=== PATIENT | male | born 1975 | race American Indian/Alaskan Native ===

== ENCOUNTER 2020-10-30 14:59 | Emergency (ER) | payer SELFPAY ==
[2020-10-30 16:01] VITALS: BP 198/93
--- NOTE | 2020-10-30 16:12 | Emergency Department Report ---
ED General Adult HPI - General Chief complaint: Extremity Injury, Lower Stated complaint: LEFT KNEE PAIN Time Seen by Provider: 10/30/20 16:01 Source: patient Mode of arrival: Ambulatory Limitations: No Limitations - History of Present Illness Initial comments: 44-year-old -[place] male patient presents with complaints of left knee pain x3 days. Patient states the pain began while walking down the stairs and twisting his knee. He rates his current pain as a 7/10 in severity states it occurs only with ambulation. He also states there is some tightness after sitting for an extended period of time. He denies any swelling, skin changes, numbness/tingling/weakness in his leg, or difficulty moving his knee. Quality: aching Worsens with: immobilization, medication (Ibuprofen) - Related Data Previous Rx's Medication Instructions Recorded Last Taken Type Acetaminophen [Tylenol] 1,000 mg PO Q6HR #30 tablet 10/30/20 Unknown Rx Naproxen 500 mg PO BID PRN #20 tablet 10/30/20 Unknown Rx Allergies Allergy/AdvReac Type Severity Reaction Status Date / Time No Known Allergies Allergy Unverified 10/30/20 15:53 ED Review of Systems ROS: Stated complaint: LEFT KNEE PAIN Other details as noted in HPI Musculoskeletal: arthralgia. denies: joint swelling Skin: denies: change in color, pruritus Neurological: abnormal gait. denies: numbness, paresthesias ED Past Medical Hx - Past Medical History Previous Medical History?: No - Surgical History Past Surgical History?: No - Social History Smoking Status: Never Smoker - Medications Home Medications: Home Medications Medication Instructions Recorded Confirmed Last Taken Type Acetaminophen [Tylenol] 1,000 mg PO Q6HR #30 tablet 10/30/20 Unknown Rx Naproxen 500 mg PO BID PRN #20 tablet 10/30/20 Unknown Rx ED Physical Exam - General Limitations: No Limitations General appearance: alert, in no apparent distress - Head Head exam: Present: atraumatic, normocephalic - Eye Eye exam: Present: normal appearance - Respiratory Respiratory exam: Absent: respiratory distress - Cardiovascular Cardiovascular Exam: Present: regular rate - Expanded Lower Extremity Exam Left Knee exam: Present: full ROM, tenderness (Medial joint line tenderness noted). Absent: swelling, abrasion, laceration, ecchymosis, deformity, dislocation, effusion Neuro vascular tendon exam: Present: no vascular compromise. Absent: sensory deficit - Neurological Exam Neurological exam: Present: alert, oriented X3 - Psychiatric Psychiatric exam: Present: normal affect, normal mood - Skin Skin exam: Present: warm, dry, intact, normal color. Absent: rash, cyanosis, diaphoretic, pallor, ecchymosis ED Course Vital Signs 10/30/20 10/30/20 15:35 15:59 Temperature 99.2 F Pulse Rate 96 H 90 Respiratory 18 Rate Blood Pressure 198/93 [Left] O2 Sat by Pulse 98 96 Oximetry ED Medical Decision Making - Radiology Data Radiology results: report reviewed INDICATION / CLINICAL INFORMATION: medial pain COMPARISON: None available. FINDINGS: BONES / JOINT(S): No acute fracture or subluxation. Mild arthrosis in the medial joint space. SOFT TISSUES: Mild suprapatellar knee joint effusion. Minimal soft tissue swelling and edema over the medial aspect of the knee. ADDITIONAL FINDINGS: None. - Medical Decision Making 44-year-old -[place] male patient presents with complaints of left knee pain x3 days. Patient states the pain began while walking down the stairs and twisting his knee. He rates his current pain as a 7/10 in severity states it occurs only with ambulation. He also states there is some tightness after sitting for an extended period of time. He denies any swelling, skin changes, numbness/tingling/weakness in his leg, or difficulty moving his knee. Critical care attestation.: If time is entered above; I have spent that time in minutes in the direct care of this critically ill patient, excluding procedure time. ED Disposition Clinical Impression: Knee effusion, left, Elevated blood pressure reading Disposition: TO HOME OR SELFCARE Is pt being admited?: No Condition: Stable Instructions: Knee Effusion, RICE Therapy for Routine Care of Injuries, Blvy-ll-Nitz, Hypertension, Adult Additional Instructions: It is very important that you follow-up with your primary care doctor or the one provided from [facility] concerning your blood pressure within 2 to 3 days. Prescriptions: Acetaminophen [Tylenol] 1,000 mg PO Q6HR #30 tablet Naproxen 500 mg PO BID PRN #20 tablet PRN Reason: pain Referrals: [facility] [Provider Group] - 3-5 Days [facility] [Provider Group] - 3-5 Days Forms: Work/School Release Form(ED)
--- NOTE | 2020-10-30 16:42 | XRay Report ---
LEFT KNEE 3 VIEW(S) INDICATION / CLINICAL INFORMATION: medial pain COMPARISON: None available. FINDINGS: BONES / JOINT(S): No acute fracture or subluxation. Mild arthrosis in the medial joint space. SOFT TISSUES: Mild suprapatellar knee joint effusion. Minimal soft tissue swelling and edema over the medial aspect of the knee. ADDITIONAL FINDINGS: None. Signer Name: Jabier Concepcion MD Signed: 10/30/2020 4:38 PM Workstation Name: [id number]
== END 2020-10-30 18:30 | disposition home or self-care (01) ==
LOC: ED 14:59
DX: M25.462 Effusion, left knee (principal); R03.0 Elevated blood-pressure reading, without diagnosis of hypertension; Z79.899 Other long term (current) drug therapy
CPT/HCPCS: 99283